=== PATIENT | male | born 1985 ===

== ENCOUNTER 2017-09-30 14:05 | Emergency (ER) | payer OTHER ==
[2017-09-30 15:48] VITALS: BP 145/87; PULSE 83; RESP 18; TEMP 98; O2SAT 98
--- NOTE | 2017-09-30 15:57 | ED PDOC ---
Upper Extremity Pain/Injury Time Seen by Provider: 09/30/17 14:48 Chief Complaint (Nursing): Abnormal Skin Integrity Chief Complaint (Provider): Abnormal Skin Integrity History Per: Patient History/Exam Limitations: no limitations Onset/Duration Of Symptoms: Mins (prior to arrival) Current Symptoms Are (Timing): Still Present Additional Complaint(s): 32 year old male who presents to the emergency department for an evaluation of left index laceration status post accidentally cutting finger with a knife at work prior to arrival. Denied any numbness, tingling or loss of consciousness. Of note, patient is not up-to-date with tetanus vaccination. PMD: none provided Past Medical History Reviewed: Historical Data, Nursing Documentation, Vital Signs Vital Signs: Last Vital Signs Temp 98 F 09/30/17 15:46 Pulse 83 09/30/17 15:46 Resp 18 09/30/17 15:46 BP 145/87 09/30/17 15:46 Pulse Ox 98 09/30/17 15:46 - Medical History PMH: No Chronic Diseases - Surgical History Surgical History: No Surg Hx - Family History Family History: States: No Known Family Hx - Social History Current smoker - smoking cessation education provided: No Ex-Smoker (has not smoked in the last 12 months): No Alcohol: None Drugs: Denies - Immunization History Hx Tetanus Toxoid Vaccination: No - Home Medications Home Medications: Ambulatory Orders Medication Instructions Recorded Cephalexin [cephalexin] 500 mg PO Q6 #28 cap 09/30/17 - Allergies Allergies/Adverse Reactions: Allergies Allergy/AdvReac Type Severity Reaction Status Date / Time No Known Allergies Allergy Verified 09/30/17 15:48 Review of Systems ROS Statement: Except As Marked, All Systems Reviewed And Found Negative Musculoskeletal: Positive for: Hand Pain (left index lacteration) Neurological: Negative for: Numbness (or tingling), Other (LOC) Physical Exam - Reviewed Nursing Documentation Reviewed: Yes Vital Signs Reviewed: Yes - Physical Exam Appears: Positive for: Well, Non-toxic, No Acute Distress Respiratory: Positive for: Normal Breath Sounds. Negative for: Decreased Breath Sounds, Respiratory Distress Extremity: Positive for: Capillary Refill (<2 seconds), Other (2cm linear superficial laceration on dorsal surface of left 2nd digit from nail to middle phalanx). Negative for: Deformity (or active bleeding) Neurologic/Psych: Positive for: Alert, Oriented. Negative for: Motor/Sensory Deficits - ECG O2 Sat by Pulse Oximetry: 98 (RA) Pulse Ox Interpretation: Normal Medical Decision Making Medical Decision Making: Initial Impression: Finger laceration Initial Plan: Scribe Attestation: Documented by Fabiana Vincent, acting as a scribe for Darien Vazquez PA-C. Provider Scribe Attestation: All medical record entries made by the Scribe were at my direction and personally dictated by me. I have reviewed the chart and agree that the record accurately reflects my personal performance of the history, physical exam, medical decision making, and the department course for this patient. I have also personally directed, reviewed, and agree with the discharge instructions and disposition. Procedures - Time-Out Type of Procedure: Laceration repari Site of Procedure: L 2nd digit Correct Patient: Yes Correct Procedure: Yes Correct Site Marked: Yes MELISSA/Tech: Taylor - Laceration/Wound Repair Laceration repair Wound Length (cm): 3 Wound's Depth, Shape: superficial, linear Irrigated w/ Saline (ccs): 1,000 Betadine Prep?: Yes Anesthesia: 1% Lidocaine Volume Anesthetic (ccs): 4 Wound Repaired With: Sutures Suture Size/Type: 5:0, proline, nylon Number of Sutures: 5 Wound Complexity: Simple Disposition - Clinical Impression Clinical Impression: Finger laceration - Patient ED Disposition Is Patient to be Admitted: No - Disposition Referrals: Loreta Guillermo [Outside] Disposition: Routine/Home Disposition Time: 17:05 Condition: STABLE Prescriptions: Cephalexin [cephalexin] 500 mg PO Q6 #28 cap Instructions: Finger Laceration (ED), Care For Your Absorbable Stitches (ED) Forms: Digital [employer] (Tajik) Print Language: CROATIAN
[2017-09-30] MEDS ORDERED: Lidocaine 1% Inj (20ml) ONE (15:59)
== END 2017-09-30 17:37 | disposition home or self-care (01) ==
LOC: H.ER 14:05
DX: S61.201A Unspecified open wound of left index finger without damage to nail, initial encounter (principal); W26.0XXA Contact with knife, initial encounter; Y99.0 Civilian activity done for income or pay